=== PATIENT | female | born 1990 | race Two or more races ===

== ENCOUNTER 2019-11-19 11:11 | Emergency (ER) | payer MEDICAID, OTHER ==
[~2019-11-19] VITALS: Ht 170.2 cm; Wt 66.2 kg
[2019-11-19 11:42] VITALS: BP 135/73
== END 2019-11-19 13:36 | disposition left against medical advice (07) ==
LOC: ER 11:11
DX: R22.0 Localized swelling, mass and lump, head (principal); Z53.21 Procedure and treatment not carried out due to patient leaving prior to being seen by health care provider